=== PATIENT | female | born 1970 | race American Indian/Alaskan Native ===

== ENCOUNTER 2025-07-20 23:13 | Inpatient (IN) | payer OTHER ==
[~2025-07-20] VITALS: Ht 170.2 cm; Wt 127.3 kg
--- NOTE | 2025-07-20 23:36 | Physician Documentation ---
History of Present Illness ~ Stated Complaint: WEAKNESS Time Seen by MD: 23:32 OK to notify your PCP?: Yes HPI 55-year-old female, brought in by EMS for generalized weakness Per EMS, the patient is currently ounhoused, went to a group home home in full the fire alarm, and then EMS was called. She reported generalized weakness. She had pinpoint pupils and kept falling asleep. She reported a his tory of diabetes and CHF, but has not been on any medications. She denied any substance use. Here in the ED, the patient continues to report feeling weak and tired. She did have a recent head injury and has a hematoma to the left forehead. She reports mild shortness of breath. She denies any fevers. No productive cough. No chest pain. No abdominal pain. No vomiting or diarrhea. She is a difficult historian, history is somewhat limited Medication Reconciliation Scheduled Sulfamethoxazole/Trimethoprim (Bactrim Ds Tablet), 1 TAB PO Q12H Review of Systems Constitutional: Reports: malaise, weakness; Denies: fever Respiratory: Reports: shortness of breath Gastrointestinal: Denies: abdominal pain Physical Exam Physical Exam General: This is a middle-aged woman, sleeping when I enter the room HEENT: Hematoma to the left forehead, otherwise no scalp injuries. oropharynx appears dry. Pupils are 2 mm Heart: Mild tachycardic, appears regular Lungs: Clear breath sounds bilateral, normal work of breathing, normal oxygen saturation on room air Abdomen: Soft, nondistended, nontender all quadrants Extremities: Warm and well-perfused Neuro: The patient is sleepy and slow to answer, but is oriented and follows commands Psychiatric: Slow to answer, appears sedated Progress Results/Orders Results/Orders Orders - ALEXANDREA MULLER MD Ct Head (07/20/25 23:36) Straight Cath For Urine Sample (07/20/25 23:36) Chest,Single View (07/20/25 23:36) Page Hospitalist (07/21/25 06:51) Completed Orders - ALEXANDREA MULLER MD Cbc/Diff (07/20/25 23:36) CMP (07/20/25 23:36) Drug Screen, Urine (07/20/25 23:36) PBNP (07/20/25 23:36) Ct Head (07/20/25 23:36) Chest,Single View (8/22/25 23:36) Ua W/Microscopic, Cult If Ind (07/21/25 05:00) Normal Saline 1000ml (0.9% Sodium Chlori (07/21/25 05:40) Ceftriaxone/O6l-[id number] 1gm (Rocephin 1 (07/21/25 05:40) Medications Received in ER Medications (Trade) Dose Ordered Sig/Loy Route PRN Reason Start Time Stop Time Status Last Admin Dose Admin Sodium Chloride 1,000 ml @ 1,000 mls/hr ONCE ONCE IV 07/21/25 05:40 07/21/25 06:39 DC 07/21/25 05:55 1,000 MLS/HR Ceftriaxone Sodium 50 ml @ 100 mls/hr ONCE ONCE IV 07/21/25 05:40 07/21/25 06:09 DC 07/21/25 05:54 100 MLS/HR Vital Signs 07/20/25 07/20/25 07/21/25 07/21/25 23:38 23:42 02:30 03:30 Pulse 74 75 71 Resp 16 16 18 16 B/P (MAP) 134/83 139/84 (102) 138/78 (98) Pulse Ox 96 98 96 07/21/25 07/21/25 07/21/25 07/21/25 04:30 05:34 06:20 06:37 Pulse 74 76 72 Resp 17 16 16 12 B/P (MAP) 132/81 (98) 136/82 (100) 140/87 (104) Pulse Ox 97 96 97 07/21/25 06:42 Temp 97.9 Pulse 63 Resp 12 B/P (MAP) 126/79 (95) Pulse Ox 98 O2 Flow Rate 0 Laboratory Tests Test 07/21/25 00:39 07/21/25 05:00 White Blood Count 9.1 Red Blood Count 4.25 Hemoglobin 13.1 Hematocrit 38.2 Mean Corpuscular Volume 90.0 Mean Corpuscular Hemoglobin 30.8 Mean Corpuscular Hemoglobin Concent 34.2 Red Cell Distribution Width 16.5 H Platelet Count 247 Mean Platelet Volume 8.4 Neutrophils (%) (Auto) 72.9 Lymphocytes (%) (Auto) 20.5 L Monocytes (%) (Auto) 5.0 Eosinophils (%) (Auto) 0.6 Basophils (%) (Auto) 1.0 Neutrophils # (Auto) 6.7 Lymphocytes # (Auto) 1.9 Monocytes # (Auto) 0.5 Eosinophils # (Auto) 0.1 Basophils # (Auto) 0.1 CBC Comment Sodium Level 140 Potassium Level 3.3 L Chloride Level 103 Carbon Dioxide Level 27.5 Anion Gap 10 Blood Urea Nitrogen 19 H Creatinine 2.93 H Estimated GFR/1.73 m2 17 BUN/Creatinine Ratio 6.5 L Glucose Level 128 H Calcium Level 9.5 Total Bilirubin 0.7 Aspartate Amino Transf (AST/SGOT) 108 H Alanine Aminotransferase (ALT/SGPT) 50 Alkaline Phosphatase 85 Pro-B-Type Natriuretic Peptide 88 Total Protein 7.7 Albumin 3.9 Globulin 3.8 Albumin/Globulin Ratio 1.0 L Chemistry Comments Urine Specimen Description Cln catch midstream Urine Color Yellow Urine Clarity Slightly cloudy Urine pH 6.0 Urine Specific [place] >=1.030 Urine Protein 100 H Urine Glucose (UA) Negative Urine Ketones Trace H Urine Occult Blood Moderate H Urine Nitrite Positive H Urine Bilirubin Small Urine Urobilinogen 1.0 Urine Leukocyte Esterase Trace H Urine RBC 10-20 Urine WBC 30-50 H Urine Squamous Epithelial Cells Many Urine Bacteria 4+ Urine Yeast Moderate Urine Culture Indicated Rejected for culture Volume Urine Centrifuged 6 ml Urine Comment Low volume Urine Opiates Screen Negative Urine Methadone Screen Negative Urine Fentanyl Screen Negative Urine Barbiturates Screen Negative Urine Phencyclidine Screen Negative Urine Amphetamines Screen Positive Urine Benzodiazepines Screen Negative Urine Cocaine Screen Negative Urine Cannabinoids Screen Negative Drug Screen Comment EKG/XRAY/CT/US/VASC/MRI Chest X-Ray : Additional Comments I personally interpreted the x-ray, and it shows: No focal consolidation, no si gnificant pulmonary edema, no mediastinal widening CT : Impression I personally reviewed the CT scan, and this shows no intracranial hemorrhage Consults/PCP Consults/PCP : Additional Comment Consult: I spoke to the internal medicine service, for admission in the hospital Medical Decision Making Additional Information Differential includes dehydration, electrolyte derangement, UTI, head injury, intracranial hemorrhage, pneumonia, CHF, substance use Assessment The patient presents with generalized weakness. Her workup shows findings consistent with acute kidney injury and urinary tract infection. She was given IV fluids and antibiotics. She has not have any of her other medications. Overall she is not seem safe for discharge. She will be admitted to the medicine service for further treatment. Departure Time of Disposition: 06:24 Disposition: 01 HOME / SELF CARE / HOMELESS Impression: Primary Impression: Dehydration Additional Impression: Acute urinary tract infection Condition: Improved Discharge Instructions: Dehydration, Adult, Urinary Tract Infection, Adult Referrals: NO PRIMARY CARE PROVIDER (PCP) Prescriptions Sulfamethoxazole/Trimethoprim (Bactrim Ds Tablet) 800 Mg-160 Mg Tablet 1 TAB PO Q12H for 7 Days, #14 TAB Prov: ALEXANDREA MULLER MD 07/21/25 Education Educated: Patient Educated regarding: diagnosis, treatment, need for follow up Signature Scribe Signature: altaf Attestation: ALEXANDREA Dunham MD Jul 20, 2025 23:36
--- NOTE | 2025-07-21 00:03 | RADIOLOGY REPORT ---
CHEST RADIOGRAPH Indication: Shortness of breath, weakness, history of CHF Technique: 1 view Comparison: None FINDINGS: Lines and Tubes: None Lungs: Diffuse interstitial opacities. No consolidation. Pleura: No effusion or pneumothorax. Cardiomediastinal contours: Cardiomegaly with central pulmonary vascular prominence. Other: No acute osseous abnormality. IMPRESSION: 1. Heart failure pattern without acute consolidation.
--- NOTE | 2025-07-21 00:45 | RADIOLOGY REPORT ---
EXAM: CT CT HEAD INDICATION: Altered mental status, weakness, head injury TECHNIQUE: CT of the head without intravenous contrast. Radiation Dose Information: CT Dose: CTDI volume is 68.06 mGy. Dose-length product is 2865.5 mGy*cm The dose indicators for CT are the volume Computed Tomography (CT) Dose Index (CTDIvol) and the Dose Length Product (DLP), and are measured in units of mGy and mGy-cm, respectively. These indicators are not patient dose, but values generated from the CT scanner acquisition factors. The report includes radiation exposure data for exposures received during this examination. COMPARISON: None FINDINGS: Evaluation is degraded by motion artifact. Within this limitation, no CT evidence of large intracran ial hemorrhage or mass effect. The ventricles, cisterns, and sulci appear age-appropriate. The orbits are normal. The visualized paranasal sinuses and mastoid air cells are clear. The soft t issues and osseous structures appear within normal limits. IMPRESSION: 1. Motion degraded evaluation without evidence for large intracranial hemorrhage or mass effect. 2. If clinical symptoms persist, MRI may be beneficial further evaluation.
[2025-07-21 00:47] LABS: MEAN PLATELET VOLUME 8.4 FL (7.4-10.4); RED CELL DISTRIBUTION WIDTH 16.5 % (11.5-14.5)
[2025-07-21 01:00] LABS: CREATININE 2.93 MG/DL (0.40-0.90); TOTAL CARBON DIOXIDE 27.5 MMOL/L (24-32); eCRCL 21 ML/MIN; eGFR 17 ML/MIN
[2025-07-21 01:08] LABS: PRO BRAIN NATRIURETIC PEPTIDE 88 PG/ML (0-125)
[2025-07-21 05:22] LABS: LEUKOCYTE ESTERASE ,URINE TRACE (Neg); NITRITES, URINE POSITIVE (Neg); OCCULT BLOOD,URINE MODERATE (Neg)
[2025-07-21 05:27] LABS: UA COLLECTION TYPE CLN CATCH MIDSTREAM
[2025-07-21 05:30] LABS: SQUAMOUS EPITHELIAL CELL,UR MANY /LPF (FEW); YEAST MODERATE /HPF (NEGATIVE)
[2025-07-21 05:41] LABS: URINE AMPHETAMINE SCREEN POSITIVE (Neg); URINE BARBITUATE SCREEN NEGATIVE (Neg); URINE BENZODIAZEPINES SCREEN NEGATIVE (Neg); URINE CANNABINOID SCREEN NEGATIVE (Neg); URINE COCAINE SCREEN NEGATIVE (Neg); URINE METHADONE SCREEN NEGATIVE (Neg); URINE OPIATE SCREEN NEGATIVE (Neg); URINE PHENCYCLIDINE SCREEN NEGATIVE (Neg)
[2025-07-21] MEDS: CefTRIAXone/D5W-Rocephin 1gm 50 ML IV ONE (05:54)
[2025-07-21] MEDS: normal saline 1000ml 1,000 ML IV ONE (05:55)
[2025-07-21] MEDS ORDERED: SULF1TAB49 PO (06:25)
[2025-07-21 06:42] VITALS: TEMP 97.9
[2025-07-21] MEDS ORDERED: ondansetron/PF 4mg/2ml inj IV PRN (07:20)
[2025-07-21] MEDS ORDERED: magnesium Cl slow-release 64mg tablet PO PRN (07:20)
[2025-07-21] MEDS ORDERED: HYDROcodone/acetaminophen 10/325mg tab PO PRN (07:20)
[2025-07-21] MEDS ORDERED: potassium Cl 40MEQ/1/2NS 520ml 520 ML IV PRN (07:20)
[2025-07-21] MEDS ORDERED: potassium Cl 20 mEq SR tablet PO PRN ×2 (07:20)
[2025-07-21] MEDS ORDERED: magnesium sulf-water 4G/100mL 100 ML IV PRN (07:20)
[2025-07-21] MEDS: normal saline 1000ml 1,000 ML IV SCH ×2 (07:20→08:10)
[2025-07-21] MEDS ORDERED: HYDROcodone/acetaminophen 5mg/325mg tablet PO PRN (07:20)
[2025-07-21] MEDS ORDERED: magnesium sulf-water 2g/50mL 50 ML IV PRN (07:20)
[2025-07-21] MEDS: potassium CL 10mEq/100ml bag 100 ML IV ONE ×2 (07:45→08:12)
[2025-07-21] MEDS: docusate sod 100mg capsule PO SCH (08:00)
[2025-07-21] MEDS: K and/or MAG REPLACEMENT MC SCH (08:00)
[2025-07-21 09:30] VITALS: BP 119/62; PULSE 73; RESP 14; O2SAT 96
--- NOTE | 2025-07-21 16:06 | HISTORY AND PHYSICAL-Residence ---
History & Physical Providers to CC Resident Creating Document: [place], [place] ~ History of Present Illness Reason for Admit\\Complaint: UTI History of Present Illness This is a 55-year-old female with past medical history of type 2 diabetes, congestive heart failure, hypothyroidism came to the ER after EMS was called when she tried to pull a fire alarm in a senior house. The EMS found her completely naked at the senior house. On arrival there was a hematoma on the left scalp to which she stated that she had a fall yesterday. Patient is a very poor historian, she seems disoriented and under influence of drugs. She does not remember how the fall occurred. She has an abrasion on the scalp and she does not remember how that occurred as well. She complained of burning micturition since one-week, not associated with fever or increased frequency. She is oriented to place but not to person. She keeps talking about people who are not in the room and her ex-boyfriends. She stated that everyone is after her money and even the hospital. She has not taken her medications for 1 year. Allergies: Uncoded Allergies: PCN (Allergy, Severe, "I get sick and will like or something', 07/21/25) Home Medications Home Medications Active Bactrim Ds Tablet (Sulfamethoxazole/Trimethoprim) 800 Mg-160 Mg Tablet 1 Tab PO Q12H 7 Days Past Medical History Past Medical History Type 2 diabetes Hypothyroidism Congestive heart failure Past Social History Smoking: Cigarettes, Less than 1 pack/day Alcohol Use: Occasionally Lives with: Alone Lives In: Homeless Occupation: unemployed ROS Constitutional: Reports: malaise, weakness; Denies: fever Respiratory: Reports: shortness of breath Cardiovascular: Reports: lightheadedness, syncope, edema Gastrointestinal: Reports: abdominal pain, poor fluid intake Genitourinary: Reports: burning Female Genitalia: Reports: no reported symptoms Neurological: Reports: no symptoms reported Musculoskeletal: Reports: no symptoms reported Integumentary: Reports: wound(s) Allergic/Immunologic: Reports: no symptoms reported Hematologic/Lymphatic: Reports: no symptoms reported Endocrine: Reports: no symptoms reported Psychiatric: Reports: no symptoms reported Unable to obtain: altered mental status Exam Vitals: Vital Signs Date Time Temp Pulse Resp B/P (MAP) Pulse Ox O2 Delivery O2 Flow Rate FiO2 07/21/25 09:30 73 14 119/62 (81) 96 0 07/21/25 07:12 Room Air* 21 07/21/25 06:42 97.9 General: General: Well alert, oriented to place but not to person, confused, agitated, acute distress,did not cooperate during the physical. HEENT: Floor into 5 cm scalp hematoma noted on the left side. A small abrasion 2x2 cm noted the top of the scalp Conjunctive are pink, sclerae clear, no icterus, pupil is equal in both sides, reactive to light, no ear discharge, no pharyngeal erythema or an edema. Neck: Supple, no JVD, no lymphadenopathy and thyromegaly. Chest: Equal air entry on both lungs, fine crackles heard in bilateral lung base Cardiovascular: S1-S2 regular sinus rhythm and, regular rate, no gallops, no rubs, no murmurs Abdomen: Pain on deep palpation in lower quadrant. Nondistended no organomegaly Extremities: Bilateral pitting pedal edema up to the knees Central Nervous System: No focal neurological deficits, no motor or sensory weakness in all 4 extremities, could move all 4 extremities, 2+ deep tendon reflexes, negative Babinski. Musculoskeletal: No joint swelling, deformities, inflammations, and no scoliosis and back tenderness Skin: Warm and dry. Diagnostic Data Last Recorded Lab Results: 07/21/25 0039 07/21/25 0753 Counseling Services Smoking & Tobacco Cessation: > 10 Minutes Advance Care Planning Advanced Care plannin - 30 Minutes (Full code) Additional Plan Assessment: A 55-year-old woman with past medical history of type 2 diabetes, hypothyroidism, congestive heart failure medicine noncompliant was brought in by the EMS in altered mental status for further evaluation Plan: Altered mental status most likely due to substance abuse vs hypothyroidism vs UTI vs stroke Urine tox positive for methamphetamine abuse, homeless We will order licensed clinical social worker and substance use navigator WBC 9.1, hemoglobin 13.1, platelet count 247 Urinalysis shows 4+ bacteria, WBC 30-50, trace leukocyte esterase, positive for urinary tract and urobilinogen Was started on an empiric antibiotic-ceftriaxone 1 g IV daily dose Urine cultures sent Head CT:1. Motion degraded evaluation without evidence for large intracranial hemorrhage or mass effect. 2. If clinical symptoms persist, MRI may be beneficial further evaluation. Chest x-ray: 1. Heart failure pattern without acute consolidation. We will order ammonia, lactic acid, procalcitonin, ESR, CRP Hypothyroidism We will order TSH, T3, T4 Was started on medication once we have the values Type 2 diabetes Overloaded hemoglobin A1c Hypo/hyperglycemia orders in place Congestive heart failure Will order echo, Start her on Lasix CODE STATUS: Full code DVT prophylaxis: SCDs Analgesia/sedation: None Lines/tubes: PIV GI prophylaxis: None Nutrition: 75 g carb controlled diet Prognosis: Guarded Disposition: Continue medical management [place] MD PGY1, Internal Medicine. [facility] Date of Service: Jul 21, 2025 Billing Provider: IRVING PAULINO MD,TARAH, RES Jul 21, 2025 16:06
--- NOTE | 2025-07-21 17:00 | DISCHARGE SUMMARY-Residence ---
Discharge Summary Providers to Resident Creating Document: [place] ~ Discharge Summary Admission Diagnosis: UTI Hospital Course DATE OF ADMISSION: 07/21/2025 DATE OF DISCHARGE: 07/21/2025 left against medical advice Discharge Diagnosis\Comment: UTI Methamphetamine abuse Hypothyroidism Type 2 diabetes mellitus Congestive cardiac failure Operations\Procedures: None Consultants: None Complications: None Condition on DC: Unstable Discharge Summary: History of present illness: This is a 55-year-old female with past medical history of type 2 diabetes, congestive heart failure, hypothyroidism came to the ER after EMS was called whe n she tried to pull a fire alarm in a senior house. The EMS found her completely naked at the senior house. On arrival there was a hematoma on the left scalp to which she stated that she had a fall yesterday. Patient is a very poor historian, she seems disoriented and under influence of drugs. She does not remember how the fall occurred. She has an abrasion on the scalp and she does not remember how that occurred as well. She complained of burning micturition since one-week, not associated with fever or increased frequency. She is oriented to place but not to person. She keeps talking about people who are not in the room and her ex-boyfriends. She stated that everyone is after her money and even the hospital. She has not taken her medications for 1 year. Course in the hospital: The patient looks agitated, not oriented to person, gives a going to people are not in the room. Not cooperative for any diagnostic testing or therapeutic medication. The patient left against medical advice Vital Signs Date Time Temp Pulse Resp B/P (MAP) Pulse Ox O2 Delivery O2 Flow Rate FiO2 07/21/25 09:30 73 14 119/62 (81) 96 0 07/21/25 07:12 Room Air* 21 07/21/25 06:42 97.9 Physical exam: General: Well alert, oriented to place but not to person, confused, agitated, acute distress,did not cooperate during the physical. HEENT: Floor into 5 cm scalp hematoma noted on the left side. A small abrasion 2x2 cm noted the top of the scalp Conjunctive are pink, sclerae clear, no icterus, pupil is equal in both sides, reactive to light, no ear discharge, no pharyngeal erythema or an edema. Neck: Supple, no JVD, no lymphadenopathy and thyromegaly. Chest: Equal air entry on both lungs, fine crackles heard in bilateral lung base Cardiovascular: S1-S2 regular sinus rhythm and, regular rate, no gallops, no rubs, no murmurs Abdomen: Pain on deep palpation in lower quadrant. Nondistended no organomegaly Extremities: Bilateral pitting pedal edema up to the knees Central Nervous System: No focal neurological deficits, no motor or sensory weakness in all 4 extremities, could move all 4 extremities, 2+ deep tendon reflexes, negative Babinski. Musculoskeletal: No joint swelling, deformities, inflammations, and no scoliosis and back tenderness Skin: Warm and dry. Laboratory Tests Test 07/21/25 00:39 07/21/25 05:00 07/21/25 07:53 White Blood Count 9.1 X10'3 Red Blood Count 4.25 X10'6 Hemoglobin 13.1 g/dl Hematocrit 38.2 % Mean Corpuscular Volume 90.0 FL Mean Corpuscular Hemoglobin 30.8 PG Mean Corpuscular Hemoglobin Concent 34.2 g/dL Red Cell Distribution Width 16.5 % Platelet Count 247 X10'3 Mean Platelet Volume 8.4 FL Neutrophils (%) (Auto) 72.9 % Lymphocytes (%) (Auto) 20.5 % Monocytes (%) (Auto) 5.0 % Eosinophils (%) (Auto) 0.6 % Basophils (%) (Auto) 1.0 % Neutrophils # (Auto) 6.7 X10'3 Lymphocytes # (Auto) 1.9 X10'3 Monocytes # (Auto) 0.5 X10'3 Eosinophils # (Auto) 0.1 X10'3 Basophils # (Auto) 0.1 X10'3 CBC Comment Sodium Level 140 MMOL/L Potassium Level 3.3 MMOL/L 3.4 MMOL/L Chloride Level 103 MMOL/L Carbon Dioxide Level 27.5 MMOL/L Anion Gap 10 Blood Urea Nitrogen 19 MG/DL Creatinine 2.93 MG/DL Estimated GFR/1.73 m2 17 ML/MIN BUN/Creatinine Ratio 6.5 Glucose Level 128 MG/DL Calcium Level 9.5 MG/DL Total Bilirubin 0.7 MG/DL Aspartate Amino Transf (AST/SGOT) 108 U/L Alanine Aminotransferase (ALT/SGPT) 50 U/L Alkaline Phosphatase 85 IU/L Pro-B-Type Natriuretic Peptide 88 PG/ML Total Protein 7.7 G/DL Albumin 3.9 G/DL Globulin 3.8 G/DL Albumin/Globulin Ratio 1.0 Chemistry Comments Urine Specimen Description Cln catch midstream Urine Color Yellow Urine Clarity Slightly cloudy Urine pH 6.0 Urine Specific [place] >=1.030 Urine Protein 100 mg/dl Urine Glucose (UA) Negative mg/dl Urine Ketones Trace mg/dl Urine Occult Blood Moderate Urine Nitrite Positive Urine Bilirubin Small Urine Urobilinogen 1.0 E.U/dL Urine Leukocyte Esterase Trace Urine RBC 10-20 /HPF Urine WBC 30-50 /HPF Urine Squamous Epithelial Cells Many /LPF Urine Bacteria 4+ /HPF Urine Yeast Moderate /HPF Urine Culture Indicated Rejected for culture Volume Urine Centrifuged 6 ml Urine Comment Low volume Urine Opiates Screen Negative Urine Methadone Screen Negative Urine Fentanyl Screen Negative Urine Barbiturates Screen Negative Urine Phencyclidine Screen Negative Urine Amphetamines Screen Positive Urine Benzodiazepines Screen Negative Urine Cocaine Screen Negative Urine Cannabinoids Screen Negative Drug Screen Comment Magnesium Level 2.1 MG/DL Discharge course: Left against medical advice *Problems/Diagnosis: (1) Methamphetamine abuse Status: Acute (2) Diabetes type 2 Status: Chronic (3) CHF (congestive heart failure) Status: Chronic (4) Hypothyroidism (5) Acute urinary tract infection Status: Acute (6) Dehydration Status: Acute Total Time Spent on D/C: Up to 30 Minutes Counseling Services Smoking & Tobacco Cessation: 3-10 Minutes Date of Service: Jul 21, 2025 Billing Provider: IRVING PAULINO MD, SHIVANI, RES Jul 21, 2025 16:53
== END 2025-07-21 14:45 | disposition left against medical advice (07) | DRG 690 ==
LOC: ER 23:14 → ED HOLD 07-21 07:22
PROVIDERS: ADMIT Internal Medicine; ATTEND Internal Medicine
DX: N39.0 Urinary tract infection, site not specified (principal); N17.9 Acute kidney failure, unspecified; I50.9 Heart failure, unspecified; E86.0 Dehydration; E11.9 Type 2 diabetes mellitus without complications; Z53.21 Procedure and treatment not carried out due to patient leaving prior to being seen by health care provider; F15.10 Other stimulant abuse, uncomplicated; Z88.0 Allergy status to penicillin
CPT/HCPCS: 36415; 70450; 71045; 80053; 80305; 81001; 83735; 83880; 84132; 85025; 96365; 99285; G0378; J0696; J3480; J7030

== ENCOUNTER 2025-07-21 22:33 | Emergency (ER) | payer SELFPAY ==
[~2025-07-21] VITALS: Ht 170.2 cm; Wt 111.8 kg
[~2025-07-21 22:33] MED LIST: SULF1TAB49 PO
[2025-07-21 22:39] VITALS: BP 129/86; PULSE 72; RESP 20; O2SAT 97
--- NOTE | 2025-07-22 01:14 | Physician Documentation ---
History of Present Illness ~ General Chief Complaint: See Chief Complaint Stated Complaint: MULTIPLE MED COMPLAINTS Time Seen by MD: 01:14 History of Present Illness Initial Comments The patient presents with vague symptoms and complaints. She has a very challenging historian. She can not actually tell me why she is here. I asked her multiple times how we can help her today and she did not really answer. I saw the patient here yesterday, diagnosed her with a urinary tract infection and admitted her to the hospital. It appears that she eloped and or left AMA. Medication Reconciliation Allergies: Uncoded Allergies: PCN (Allergy, Severe, "I get sick and will like or something', 07/21/25) Scheduled Sulfamethoxazole/Trimethoprim (Bactrim Ds Tablet), 1 TAB PO Q12H Past Medical History Alcohol Use: Occasionally Lives with: Alone Lives In: Homeless Occupation: unemployed Review of Systems Unable to obtain complete ROS: altered mental status Physical Exam Physical Exam Vital Signs: Temperature: 97.7, Source: Temporal, Heart Rate: 72, Respiratory Rate: 20, BP: 129/86, Pulse Oximetry: 97, Weight: 111.800 Oxygen Flow Rate: 0 Physical Exam General: This is a disheveled middle-aged woman, who is rambling, otherwise sitting calmly in bed HEENT: Atraumatic, oropharynx is moist Heart: Regular rate and rhythm, normal-appearing peripheral perfusion Lungs: normal work of breathing, normal oxygen saturation on room air Abdomen: Soft, nondistended, nontender all quadrants Neuro: Alert and oriented to self and location, moves all extremities, is ambulatory Psychiatric: The patient is mumbling tangential speech, appears possibly intoxicated Progress Results/Orders Results/Orders Vital Signs 07/21/25 07/22/25 22:39 01:25 Temp 97.7 97.7 Pulse 72 Resp 20 B/P (MAP) 129/86 Pulse Ox 97 O2 Flow Rate 0 Laboratory Tests Test 07/21/25 22:49 Glucometer 145 H Medical Decision Making Assessment The patient presents with a vague concerns, and is unable to specify what she is here in the emergency department for or how we can help her. When I went back to try and re-evaluate her, she had eloped from the emergency department. Departure Disposition: LEFT AWOL/ELOPED Impression: Primary Impression: General medical exam Referrals: NO PRIMARY CARE PROVIDER (PCP) Signature Scribe Signature: na Attestation: ALEXANDREA Dunham MD Jul 22, 2025 01:14
[2025-07-22 01:25] VITALS: TEMP 97.7
== END 2025-07-22 01:27 | disposition left against medical advice (07) ==
LOC: ER 22:33
DX: Z00.8 Encounter for other general examination (principal); Z79.899 Other long term (current) drug therapy
CPT/HCPCS: 82948; 99282